=== PATIENT | female | born 1975 | race Caucasian/White ===

== ENCOUNTER 2017-02-05 10:06 | Emergency (ER) | payer SELFPAY ==
[~2017-02-05] VITALS: Ht 162.6 cm; Wt 75.9 kg
[2017-02-05 10:15] VITALS: BP 175/90
[2017-02-05] MEDS ORDERED: HYDR12.55 PO (10:19)
[2017-02-05] MEDS ORDERED: PANT20TA PO (10:19)
[2017-02-05] MEDS ORDERED: predniSONE 20 MG TAB PO ONE (11:30)
[2017-02-05] MEDS ORDERED: PRED20TA PO (12:02)
== END 2017-02-05 12:07 | disposition home or self-care (01) ==
LOC: M ED 10:06
DX: R21 Rash and other nonspecific skin eruption (principal); J02.8 Acute pharyngitis due to other specified organisms; I10 Essential (primary) hypertension; Z79.899 Other long term (current) drug therapy

== ENCOUNTER 2017-04-24 00:16 | Emergency (ER) | payer SELFPAY ==
[2017-04-24 02:43] LABS: INFLUENZA A AMPLIFICATION NEGATIVE (NEGATIVE); INFLUENZA B AMPLIFICATION NEGATIVE (NEGATIVE)
[2017-04-24] MEDS: AUGMENTIN 875 MG TAB PO (03:30)
== END 2017-04-24 03:50 | disposition home or self-care (01) ==
LOC: M ED 00:16
DX: J32.9 Chronic sinusitis, unspecified (principal); Z87.891 Personal history of nicotine dependence; Z98.890 Other specified postprocedural states
CPT/HCPCS: 87502

== ENCOUNTER 2017-11-28 17:44 | Emergency (ER) | payer OTHER, SELFPAY | END 2017-11-28 18:23 | disposition home or self-care (01) | LOC: M ED 17:44 | DX: M77.9 Enthesopathy, unspecified (principal); I10 Essential (primary) hypertension; K21.9 Gastro-esophageal reflux disease without esophagitis; Z79.899 Other long term (current) drug therapy | CPT/HCPCS: 99283 ==

== ENCOUNTER → 2018-07-15 | Outpatient (CLI) | payer OTHER ==
[~2018-07-15] MED LIST: AUGM875T28 PO; COLLCAP PO; HYDR12.55 PO; NAPR-837 PO; PANT20TA2 PO; PRED20TA PO; TUMERIC; VITA400C97 PO; VITATAB11 PO; [UNRECOGNIZED DRUG - OTHER]
[2018-07-15 13:05] LABS: BASO # 0.1 10^3/uL (0.0-0.2); BASO % 0.6 % (0.0-1.0); EOS # 0.5 10^3/uL (0.0-0.50); EOS % 5.2 % (0.0-3.0); HEMATOCRIT 42.5 % (36.0-47.0); HEMOGLOBIN 14.2 g/dl (12.0-15.5); LYMPH % 22.1 % (24.0-44.0); MEAN CORPUSCULAR HEMOGLOBIN 30.9 pg (27.0-33.0); MEAN CORPUSCULAR HGB CONC 33.4 g/dl (32.0-36.5); MEAN CORPUSCULAR VOLUME 92.6 fl (80.0-96.0); MONO # 0.6 10^3/uL (0.0-0.8); MONO % 6.6 % (0.0-5.0); NEUTROPHILS # 5.8 10^3/uL (1.8-7.7); NEUTROPHILS % 65.1 % (36.0-66.0); PLATELET COUNT, AUTOMATED 365 10^3/uL (150-450); RED BLOOD COUNT 4.59 10^6/uL (4.00-5.40); WHITE BLOOD COUNT 8.9 10^3/uL (4.0-10.0)
[2018-07-15 13:25] LABS: ALBUMIN 3.7 GM/DL (3.2-5.2); ALT/SGPT 27 U/L (12-78); BILIRUBIN,TOTAL 0.4 MG/DL (0.2-1.0); BLOOD UREA NITROGEN 14 MG/DL (7-18); CALCIUM LEVEL 8.7 MG/DL (8.5-10.1); CARBON DIOXIDE LEVEL 27 MEQ/L (21-32); CHLORIDE LEVEL 107 MEQ/L (98-107); CHOLESTEROL LEVEL 251 MG/DL (<200); CHOLESTEROL RISK RATIO 6.275 (<5); CREATININE FOR GFR 0.83 MG/DL (0.55-1.30); GLOMERULAR FILTRATION RATE > 60.0 (>58); GLUCOSE, FASTING 66 MG/DL (70-100); HDL CHOLESTEROL 40 MG/DL (>40); LDL CHOLESTEROL 156.4 MG/DL (<100); NON-HDL-C 211 MG/DL; POTASSIUM SERUM 4.8 MEQ/L (3.5-5.1); SODIUM LEVEL 141 MEQ/L (136-145); TOTAL PROTEIN 7.5 GM/DL (6.4-8.2); TRIGLYCERIDES LEVEL 273 MG/DL (<150)
== END ==
LOC: M WUC 10:31
PROVIDERS: ATTEND Family Medicine
DX: Z00.00 Encounter for general adult medical examination without abnormal findings (principal)

== ENCOUNTER → 2018-07-15 | Outpatient (REF) | payer OTHER ==
[2018-07-15 17:09] LABS: CHLAMYDIA DNA AMPLIFICATION NEGATIVE (NEGATIVE); GC DNA AMPLIFICATION NEGATIVE (NEGATIVE)
[2018-07-19 14:13] LABS: HPV HYBRID CAPTURE II Negative (Negative)
== END ==
LOC: M LAB REF 13:34
PROVIDERS: ATTEND Advanced Practice Midwife
DX: Z12.4 Encounter for screening for malignant neoplasm of cervix (principal); Z11.3 Encounter for screening for infections with a predominantly sexual mode of transmission

== ENCOUNTER 2018-07-18 13:11 | Emergency (ER) | payer OTHER ==
[~2018-07-18] VITALS: Ht 162.6 cm; Wt 78.6 kg
[~2018-07-18 13:11] MED LIST changes: -[UNRECOGNIZED DRUG - OTHER]
[2018-07-18] MEDS ORDERED: [UNRECOGNIZED DRUG - OTHER] (13:19)
--- NOTE | 2018-07-18 15:54 | REP ---
RIGHT ANKLE, FOUR VIEWS: HISTORY: Fall. There is no acute fracture or dislocation. The joint space is normal in appearance. IMPRESSION: There is no acute fracture or dislocation. Electronically Signed by Donaldo Emanuel MD 07/18/2018 03:55 P
[2018-07-18] MEDS ORDERED: NAPR-837 PO (15:56)
[2018-07-18 16:14] VITALS: BP 161/96
--- NOTE | 2018-07-18 18:56 | REP ---
RIGHT FOOT, FOUR VIEWS: HISTORY: 4th and 5th metatarsal pain. There is no acute fracture or dislocation. The joint spaces are normal in appearance. IMPRESSION:There is no acute fracture or dislocation. Electronically Signed by Donaldo Emanuel MD 07/19/2018 08:41 A
== END 2018-07-18 16:15 | disposition home or self-care (01) ==
LOC: M ED 13:11
DX: S90.31XA Contusion of right foot, initial encounter (principal); W10.9XXA Fall (on) (from) unspecified stairs and steps, initial encounter; Y92.009 Unspecified place in unspecified non-institutional (private) residence as the place of occurrence of the external cause; Y93.9 Activity, unspecified; Y99.9 Unspecified external cause status; K21.9 Gastro-esophageal reflux disease without esophagitis; Z79.899 Other long term (current) drug therapy

== ENCOUNTER → 2018-07-20 | Outpatient (CLI) | payer OTHER ==
[~2018-07-20] MED LIST changes: +[UNRECOGNIZED DRUG - OTHER]
--- NOTE | 2018-07-21 14:02 | REP ---
Right ankle four views History: Injury There is no acute fracture or dislocation. The joint space is normal in appearance. An osteophyte is present on the posterior calcaneus. Impression: There is no acute fracture or dislocation. Electronically Signed by Donaldo Emanuel MD 07/21/2018 01:54 P
--- NOTE | 2018-07-21 14:06 | REP ---
RIGHT FOOT, FOUR VIEWS: HISTORY: Injury. There are nondisplaced fractures of the medial cuneiform and base of the 1st metatarsal. There is no dislocation. The joint spaces are normal in appearance. IMPRESSION: Fractures of the medial cuneiform and 1st metatarsal. Electronically Signed by Donaldo Emanuel MD 07/21/2018 02:13 P
== END ==
LOC: M WUC 18:52
PROVIDERS: ATTEND Physician Assistant
DX: S92.314A Nondisplaced fracture of first metatarsal bone, right foot, initial encounter for closed fracture (principal); S92.244A Nondisplaced fracture of medial cuneiform of right foot, initial encounter for closed fracture; X58.XXXA Exposure to other specified factors, initial encounter; Y92.89 Other specified places as the place of occurrence of the external cause

== ENCOUNTER → 2018-10-25 | Outpatient (CLI) | payer OTHER ==
[2018-10-25 14:37] LABS: ESTRADIOL 66.8 PG/ML
[2018-10-25 14:38] LABS: FOLLICLE STIMULATING HORMONE 7.3 mIU/mL; FREE T4 0.88 NG/DL (0.76-1.46); LUTEINIZING HORMONE 4.1 mIU/mL; PROLACTIN 7.3 NG/ML; THYROID STIMULATING HORMONE 2.04 uIU/ML (0.358-3.740)
[2018-10-25 15:01] LABS: HEMOGLOBIN A1c 5.4 %
== END ==
LOC: M WUC 08:35
PROVIDERS: ATTEND Obstetrics & Gynecology
DX: N97.9 Female infertility, unspecified (principal)

== ENCOUNTER → 2018-10-27 | Outpatient (CLI) | payer OTHER ==
[~2018-10-27] MED LIST changes: +ISOVUE-370 76% 100ML VIAL (Q9967) As Ordered ONE
--- NOTE | 2018-10-27 21:20 | REP ---
HYSTEROSALPINGOGRAM: Patient referred for hysterosalpingogram. Referring clinician catheterized the cervix and injected contrast. I obtained fluoroscopic images. Contrast opacifies the uterine cavity with no filling defect or contour abnormality. There is bilateral passage of contrast through nondilated fallopian tubes and free intraperitoneal spillage bilaterally indicating bilateral fallopian tube patency. IMPRESSION: Bilateral fallopian tubes are patent. 0.2 minutes fluoroscopy time utilized. Electronically Signed by Dandre Duong MD 10/28/2018 10:05 A
== END ==
LOC: M RADPRO 13:10
PROVIDERS: ATTEND Obstetrics & Gynecology
DX: N97.9 Female infertility, unspecified (principal)
CPT/HCPCS: 58340; 74740; Q9967

== ENCOUNTER → 2021-10-08 | Outpatient (CLI) | payer OTHER ==
[~2021-10-08] MED LIST changes: -ISOVUE-370 76% 100ML VIAL (Q9967) As Ordered ONE; -PANT20TA2 PO; +PANT20TA6 PO
[2021-10-08 10:00] LABS: HEMATOCRIT 40.6 % (36.0-47.0); HEMOGLOBIN 13.8 g/dl (12.0-15.5); MEAN CORPUSCULAR HEMOGLOBIN 31.5 pg (27.0-33.0); MEAN CORPUSCULAR VOLUME 92.7 fl (80.0-96.0); PLATELET COUNT, AUTOMATED 309 10^3/uL (150-450); RED BLOOD COUNT 4.38 10^6/uL (4.00-5.40); WHITE BLOOD COUNT 7.6 10^3/uL (4.0-10.0)
[2021-10-08 10:31] LABS: ALBUMIN 3.4 GM/DL (3.2-5.2); ALT/SGPT 24 U/L (12-78); BILIRUBIN,TOTAL 0.3 MG/DL (0.2-1.0); BLOOD UREA NITROGEN 15 MG/DL (7-18); CALCIUM LEVEL 8.7 MG/DL (8.5-10.1); CARBON DIOXIDE LEVEL 24 MEQ/L (21-32); CHLORIDE LEVEL 111 MEQ/L (98-107); CHOLESTEROL LEVEL 257 MG/DL (<200); CHOLESTEROL RISK RATIO 5.976 (<5); CREATININE FOR GFR 0.83 MG/DL (0.55-1.30); GLOMERULAR FILTRATION RATE > 60.0 (>58); GLUCOSE, FASTING 98 MG/DL (70-100); HDL CHOLESTEROL 43 MG/DL (>40); LDL CHOLESTEROL 140 MG/DL (<100); NON-HDL-C 214 MG/DL; POTASSIUM SERUM 4.2 MEQ/L (3.5-5.1); SODIUM LEVEL 141 MEQ/L (136-145); TOTAL PROTEIN 6.8 GM/DL (6.4-8.2); TRIGLYCERIDES LEVEL 370 MG/DL (<150)
== END ==
LOC: M WUC 08:27
PROVIDERS: ATTEND Family Medicine
DX: I10 Essential (primary) hypertension (principal)

== ENCOUNTER → 2021-11-27 | Outpatient (REF) | payer OTHER | LOC: M WUC 21:23 | PROVIDERS: ATTEND Physician Assistant | DX: R10.30 Lower abdominal pain, unspecified (principal) ==

== ENCOUNTER → 2022-05-03 | Outpatient (CLI) | payer OTHER ==
[~2022-05-03] MED LIST changes: +B-12100010 PO; +EQL50TAB2 PO; +L-LY500T14 PO; +MAGN400C PO; +PANT40TA29 PO; +RA T500C2 PO; +VITA400C80 PO
== END ==
LOC: M LABSMTC 11:52
PROVIDERS: ATTEND Anesthesiology
DX: Z01.812 Encounter for preprocedural laboratory examination (principal); Z11.52 Encounter for screening for COVID-19

== ENCOUNTER 2022-05-06 07:17 | Day surgery (SDC) | payer OTHER ==
[~2022-05-06] VITALS: Ht 162.6 cm; Wt 88.5 kg
[~2022-05-06 07:17] MED LIST changes: +NS 1,000 ML IV ONE
[2022-05-06] MEDS ORDERED: LIDOCAINE 2% 100MG/5ML SDV (FOR ANES.) As Ordered ONE (08:25)
[2022-05-06] MEDS ORDERED: propofoL 200 MG/20 ML VIAL As Ordered ONE ×2 (08:25→08:32)
[2022-05-06 08:55] VITALS: BP 130/78
== END 2022-05-06 09:04 | disposition home or self-care (01) ==
LOC: M OPP 07:17
PROVIDERS: ATTEND Internal Medicine Gastroenterology
DX: Z12.11 Encounter for screening for malignant neoplasm of colon (principal); K57.30 Diverticulosis of large intestine without perforation or abscess without bleeding; Z79.899 Other long term (current) drug therapy; Z87.891 Personal history of nicotine dependence

== ENCOUNTER → 2022-10-20 | Outpatient (CLI) | payer OTHER ==
[~2022-10-20] MED LIST changes: -NS 1,000 ML IV ONE
[2022-10-20 10:13] LABS: BASO # 0.1 10^3/uL (0.0-0.2); BASO % 0.6 % (0.0-1.0); EOS # 0.3 10^3/uL (0.0-0.5); EOS % 4.4 % (0.0-3.0); HEMATOCRIT 42.8 % (36.0-47.0); HEMOGLOBIN 14.4 g/dl (12.0-15.5); LYMPH # 2.2 10^3/uL (1.5-5.0); LYMPH % 28.3 % (24.0-44.0); MEAN CORPUSCULAR HEMOGLOBIN 30.9 pg (27.0-33.0); MEAN CORPUSCULAR HGB CONC 33.6 g/dl (32.0-36.5); MEAN CORPUSCULAR VOLUME 91.8 fl (80.0-96.0); MONO # 0.6 10^3/uL (0.0-0.8); MONO % 7.7 % (2.0-8.0); NEUTROPHILS # 4.6 10^3/uL (1.5-8.5); NEUTROPHILS % 58.6 % (36.0-66.0); PLATELET COUNT, AUTOMATED 300 10^3/uL (150-450); RED BLOOD COUNT 4.66 10^6/uL (4.00-5.40); WHITE BLOOD COUNT 7.8 10^3/uL (4.0-10.0)
[2022-10-20 10:43] LABS: ALBUMIN 3.8 G/DL (3.2-5.2); ALKALINE PHOSPHATASE 71 U/L (46-116); ALT/SGPT 24 U/L (7.0-40); AST/SGOT 17 U/L (<34); BILIRUBIN,TOTAL 0.6 MG/DL (0.3-1.2); BLOOD UREA NITROGEN 25 MG/DL (9-23); CALCIUM LEVEL 8.6 MG/DL (8.5-10.1); CARBON DIOXIDE LEVEL 27 MMOL/L (20-31); CHLORIDE LEVEL 105 MMOL/L (98-107); CHOLESTEROL LEVEL 245 MG/DL (<200); CHOLESTEROL RISK RATIO 5.91 (<5); CREATININE FOR GFR 0.87 MG/DL (0.55-1.30); GLOMERULAR FILTRATION RATE > 60.0 (>58); GLUCOSE, FASTING 79 MG/DL (60-100); HDL CHOLESTEROL 41.4 MG/DL (>40); LDL CHOLESTEROL 157.2 MG/DL (<100); NON-HDL-C 203.6 MG/DL; POTASSIUM SERUM 3.9 MMOL/L (3.5-5.1); SODIUM LEVEL 138 MMOL/L (136-145); TOTAL PROTEIN 6.6 G/DL (5.7-8.2); TRIGLYCERIDES LEVEL 232 MG/DL (<150)
== END ==
LOC: M WUC 08:09
PROVIDERS: ATTEND Family Medicine
DX: Z00.00 Encounter for general adult medical examination without abnormal findings (principal)

== ENCOUNTER → 2023-05-06 | Outpatient (CLI) | payer OTHER | LOC: M WHC 09:43 | PROVIDERS: ATTEND Family Medicine | DX: Z12.31 Encounter for screening mammogram for malignant neoplasm of breast (principal) ==

== ENCOUNTER → 2023-05-12 | Outpatient (CLI) | payer OTHER | LOC: M WHC 08:58 | PROVIDERS: ATTEND Family Medicine | DX: R92.2 Inconclusive mammogram (principal) ==

== ENCOUNTER 2024-10-02 01:20 | Emergency (ER) | payer OTHER ==
[~2024-10-02] VITALS: Ht 162.6 cm; Wt 80.0 kg
[~2024-10-02 01:20] MED LIST changes: -EQL50TAB2 PO; +VITA1TAB82 PO
[2024-10-02] MEDS: KETOROLAC 60 MG/2 ML VIAL IM ONE (07:23)
[2024-10-02] MEDS: LIDOCAINE 1% MDV 20 ML VIAL SC ONE (07:46)
[2024-10-02] MEDS ORDERED: AMLO1TAB24 PO (07:56)
[2024-10-02] MEDS ORDERED: LISI5TAB11 PO (07:56)
[2024-10-02] MEDS ORDERED: FLUO-365 PO (07:56)
[2024-10-02] MEDS ORDERED: FLUO-290 PO (07:56)
[2024-10-02] MEDS ORDERED: HOME MED LIST COMPLETE! XX SCH (08:00)
[2024-10-02 09:13] VITALS: TEMP 97.8
[2024-10-02 09:20] VITALS: BP 181/90; O2SAT 99
== END 2024-10-02 09:37 | disposition home or self-care (01) ==
LOC: M ED 01:20
DX: S91.202A Unspecified open wound of left great toe with damage to nail, initial encounter (principal); Y92.019 Unspecified place in single-family (private) house as the place of occurrence of the external cause; Y93.9 Activity, unspecified; Y99.9 Unspecified external cause status; W22.03XA Walked into furniture, initial encounter; I10 Essential (primary) hypertension; K21.9 Gastro-esophageal reflux disease without esophagitis; Z88.1 Allergy status to other antibiotic agents; Z79.899 Other long term (current) drug therapy
CPT/HCPCS: 11730; 73660; 96372; 99284; J1885